=== PATIENT | male | born 1970 | race African-American/Black ===

== ENCOUNTER 2017-09-13 15:50 | Emergency (ER) | payer BC ==
[2017-09-13 17:47] LABS: BILIRUBIN,URINE NEGATIVE (NEG); CLARITY,URINE CLEAR; COLOR,URINE YELLOW; GLUCOSE,URINE NEGATIVE (NEG); NITRITE,URINE NEGATIVE (NEG); PH,URINE 5.5; PROTEIN,URINE NEGATIVE (NEG-TRACE); UROBILINOGEN,URINE 0.2 mg/dL (0.2 mg/dL)
[2017-09-13 18:00] LABS: BACTERIA,URINE 0 /HPF (0-FEW); SQUAMOUS EPITHELIAL CELL,UR FEW /LPF; WBC,URINE OCC /HPF (0-4)
== END 2017-09-13 18:47 | disposition home or self-care (01) ==
LOC: ER 15:50
DX: N49.2 Inflammatory disorders of scrotum (principal)
CPT/HCPCS: 76870; 81001; 87491; 87591; 99285-25